=== PATIENT | female | born 1985 | race Hispanic/Latino ===

== ENCOUNTER 2024-07-25 09:29 | Day surgery (SDC) | payer BC ==
[2024-07-25] MEDS: Ringers Lactate 1,000 ML IV ONE (09:50)
[2024-07-25 10:05] VITALS: O2SAT 100
[2024-07-25] MEDS ORDERED: MIDAZOLAM HCL 2 MG/2 ML INJ ONE (10:48)
[2024-07-25] MEDS ORDERED: propofoL 200 MG/20 ML VIAL IV ONE (10:48)
[2024-07-25] MEDS ORDERED: ONDANSETRON 4 MG/2 ML VIAL ONE (10:48)
[2024-07-25] MEDS ORDERED: FENTANYL CITR 100 MCG/2 ML ONE ×2 (10:48→12:18)
[2024-07-25] MEDS ORDERED: LIDOCAINE 2% MPF 5 ML VIAL ONE (10:48)
[2024-07-25] MEDS ORDERED: SILVER NITRATE 1 APPL TOP ONE (10:49)
[2024-07-25] MEDS ORDERED: LIDOCAINE HCL/EPINEPHRINE 20 ML MDV ONE (10:50)
[2024-07-25] MEDS ORDERED: GLYCOPYRROLATE 0.2 MG/ML SYR ONE (11:30)
[2024-07-25] MEDS ORDERED: dexAMETHasone 10 MG/ML VIAL ONE (11:30)
[2024-07-25] MEDS: CEFAZOLIN SODIUM 1 GM/VIAL ONE (11:49)
[2024-07-25] MEDS: HYDROCODONE/APAP 5/325 MG TAB ONE (13:56)
[2024-07-25 14:21] VITALS: BP 103/52; TEMP 97
--- NOTE | 2024-07-25 23:09 | OP ---
Date of Procedure: 07/25/2024 Surgeon: Leticia Toney MD Construction Foreman: No assistants. Preoperative Diagnoses: Menorrhagia with several large leiomyomata and intramural leiomyomata x2. Postoperative Diagnoses: Menorrhagia with several large leiomyomata and intramural leiomyomata x2 an d these fibroids were 4 cm and at least 2 cm. The entire fibroids were removed. Procedures Performed: Operative hysteroscopy, hysteroscopic myomectomy x2 with MyoSure XL. Attempte d and failed endometrial ablation with NovaSure cerclage placed and removed. Complications: No complications. Drains: No drains. Anesthesia: General. Estimated Blood Loss: 50. Fluid Deficit: 1070 of normal saline. There was another 1000 that ran on the floor. Specimens: Fibroids. Condition: Stable. Findings: There were 2 large fibroids, 4-5 cm on the fundal aspect and then 2 cm fibroid on the left posterior wall near the coronal end. Both these fibroids were removed in their entirety. The large r one had to be cut into bigger chunks and these were retrieved through the cervix. Then, an ablatio n was attempted and 2 devices were used. Cerclage was placed and yet the cavity size was 8.5 cm at l east and the patulous cervix could not be occluded and the cavity length that is accommodating on the ablation device also did not work, but the ablation device once it was deployed, failed to pass the cavity integrity test and therefore even after suctioning the clots and taking all precautions of cer clage, this could not be completed. At least 45 minutes of my time was spent in the operating room j ust attempting the ablation and all the maneuvers in attempting for a complete ablation. Indications: The patient is a 39-year-old with severe menstrual bleeding, ultrasound with fibroids, hysteroscopy with intracavitary myoma. We discussed about the control of bleeding. The patient was completed with the fertility. Then, an ablation was discussed along side myomectomy in order for us to have a better affect and longer lasting decrease in menstrual flow. Once the patient was consent ed, she was taken back to the operating room. She understood that 90% of the time the ablation will control the bleeding and 10% chance of failure. Description Of Procedure: After she was taken back to the operating room and placed in a supine fash ion on the operating table, general anesthesia was given. She was placed in a dorsal lith[facility]. Lower abdomen, vulva, vagina, and perineum were prepped and draped in a sterile fashion. SCDs were started. Time-out was done. The patient was grounded. Speculum was placed to expose the cervix. Anterior lip was grasped with a single-tooth tenaculum. C ervix was significantly patulous already and 20-Slovak dilator easily passed through it. Operative h ysteroscope, the XL scope of MyoSure was passed through the cervical canal easily after priming the e ntire system. This was done. The fibroids were seen in the locations as dictated above, 1 large fundal fibroid and 1 in the left p osterior wall near the cornua. Once the operative channel was placed removing the drainage channel, proceeded with cutting the fundal fibroid first. It was cut into bigger chunks so that they can be r etrieved through the vagina. The posterior left fibroid was completely removed as well. Both of them were completely shaved off, flushed with the skin. There was no significant bleeding initially, but once the fluid was decompres sed from the uterine cavity, there were small clots and bleeding, but these have slowed down and very reasonably minimal bleeding at the end of the procedure. Ablation was started after the NovaSure device was primed, inserted into the cavity. The assessed le ngth of the cavity was 8.5 cm; however, this was not a length setting that is available on the device , so I set it to the longest length, which is 6.5. Once the all the data was entered into the [employer], then width was assessed after deploying the device into the uterine cavity. The width was 4.5 c m. The occluder was placed against the cervix and cavity integrity test was initiated and did not pa ss after 2 trials. The device was undeployed, removed from the uterine cavity. A cervical cerclage was performed with 0 PDS suture in a circumferential fashion at least 1 cm proxim al to the external os. This was tied down once I reinserted the device. There was an occlusion off the evacuation line with a suction line from clots in the initial ablation device, so a second device was opened. The other device was carefully positioned with its drainage tubing to gravity to prevent clotting. T hen, cavity was measured again and the fan was deployed. Once this was done, the cavity assessment w as restarted after cinching the cerclage around the device itself and then occluding the external os with the occluder holding the tenaculum against it. After 2 attempts, the integrity test did not pas s. There was evidence of external leakage of CO2. So, the tenaculum was replaced with Allis clamps x2. The knot on the cerclage was a sliding knot. This was tightened around the device and speculum was removed. Posterior vaginal fornix was packed with gauze and despite all these attempts and 2 mor e integrity test were done, they failed and it was time for me to abort the procedure. So, the devic e was undeployed in the usual fashion, removed. Cerclage was cut, Allis clamps were removed. The bl eeding here now was minimal. All instrument, needle, and sponge counts were correct. The patient wa s recovered from anesthesia and taken to PACU in stable condition. Her was debriefed about t he procedure, inability to do the ablation as well. We will discuss with her at length when she come s back, but I do anticipate that with removal of the 5 cm and 2 cm fibroids respectively, she is tank g to have a good chance of uterine contraction or contraction to decrease the bleeding dur ing the time. We will re-assess the patient and her symptoms in 6 and 12 weeks and discuss a plan fo r a hysterectomy if this fails or if she is open to the option of the levonorgestrel IUD that would also be another offer we can have placing devaughn t in the office. MICHELLE/VANESSA Voice ID: [id number] Report ID: [id number]
== END 2024-07-25 15:05 | disposition home or self-care (01) ==
LOC: OR 09:29
PROVIDERS: ATTEND Obstetrics & Gynecology
PROC: 0U5B8ZZ Destruction of Endometrium, Via Natural or Artificial Opening Endoscopic (ICD-10-PCS; principal; 2024-07-25 11:00)
DX: D25.1 Intramural leiomyoma of uterus (principal); N92.0 Excessive and frequent menstruation with regular cycle
CPT/HCPCS: 81025; 88305; 58561; 58563; J2704; J2003; J2250; J3010 ×2; J1100; J2405; J7120; J0690